=== PATIENT | female | born 1930 | race Caucasian/White ===

== ENCOUNTER 2016-07-10 12:06 | Outpatient (CLI) | payer MEDICARE, BC | END 2016-07-10 12:07 | disposition home or self-care (01) | DX: M25.552 Pain in left hip (principal); Z96.642 Presence of left artificial hip joint; M16.11 Unilateral primary osteoarthritis, right hip ==

== ENCOUNTER 2016-09-25 12:18 | Outpatient (CLI) | payer MEDICARE, BC | END 2016-09-25 12:19 | disposition home or self-care (01) | DX: N63 Unspecified lump in breast (principal) | CPT/HCPCS: 76642; G0204 ==

== ENCOUNTER 2016-09-27 13:06 | Outpatient (CLI) | payer MEDICARE, BC | END 2016-09-27 13:07 | disposition home or self-care (01) | DX: R05 Cough (principal) ==

== ENCOUNTER 2016-11-22 09:19 | Outpatient (CLI) | payer MEDICARE, BC ==
--- NOTE | 2016-11-22 12:02 | DEXA Report ---
DEXA SCAN: 11/22/2016 CLINICAL INDICATION: Postmenopausal. TECHNIQUE: Dual energy x-ray absorptiometry (DXA) was performed on a [employer] system. Regions measured are the AP spine, femoral neck, and, if needed, forearm. COMPARISON: None. In accordance with the International Society for Clinical Densitometry (ISCD) guidelines, data from previous exams may be reanalyzed using current recommendations and techniques. This is done to allow a more accurate basis for comparison with the current study. FINDINGS: The data for the lumbar spine is as follows: REGION BMD (g/cm/cm) T-SCORE Z-SCORE L1 1.150 0.2 2.4 L2 1.250 0.4 2.6 L3 1.210 0.1 2.3 L4 1.212 0.1 2.3 TOTAL 1.206 0.2 2.4 NOTE: All evaluable vertebrae are used for classification. The data for the hip is as follows: REGION BMD (g/cm/cm) T-SCORE Z-SCORE Neck 0.809 -1.6 1.0 TOTAL 0.764 -1.9 0.7 NOTE: The femoral neck or total proximal femur, whichever is lowest, is used for classification. IMPRESSION: THE WHO CLASSIFICATION BASED ON THE INTERNATIONAL REFERENCE STANDARD IS OSTEOPENIA. THE FRACTURE RISK IS INCREASED. RECOMMENDATION: Patients with diagnosis of osteoporosis or osteopenia should have regular bone mineral density assessment. For those eligible for Medicare, routine testing is allowed once every 2 years. Testing frequency can be increased for patients who have rapidly progressing disease or for those who are receiving medical therapy to restore bone mass. COMMENT: World Health Organization (WHO) definitions for osteoporosis and osteopenia: NORMAL BMD: T-score at -1.0 or higher, fracture risk is low. OSTEOPENIA BMD: T-score between -1.0 and -2.5, fracture risk is increased. OSTEOPOROSIS BMD: T-score at -2.5 or lower, fracture risk high. National Osteoporosis Foundation recommends: 1. Obtain adequate dietary calcium (at least 1200 mg per day) and vitamin D (400 -800 international units per day). 2. Participate, as appropriate, in regular weightbearing and muscle- strengthening exercise. 3. Avoid tobacco use and reduce alcohol and caffeine intake. 4. For more detailed information see the website at www.NOF.org. MTDD
== END 2016-11-22 09:20 | disposition home or self-care (01) ==
LOC: DI 09:19
PROVIDERS: ATTEND Internal Medicine
DX: Z13.820 Encounter for screening for osteoporosis (principal); M85.88 Other specified disorders of bone density and structure, other site; Z78.0 Asymptomatic menopausal state
CPT/HCPCS: 77080

== ENCOUNTER 2017-04-23 13:40 | Outpatient (CLI) | payer MEDICARE, BC ==
--- NOTE | 2017-04-23 18:45 | Ultrasound Report ---
LEFT BREAST ULTRASOUND: 04/23/2017 CLINICAL INDICATION: Followup left breast cancer on anastrozole. COMPARISON: 09/25/2016 TECHNIQUE: Real-time scanning was performed with outreach representative static images obtained. Ultrasound of the left breast demonstrates interval decrease in size of the primary cancer in the lef t upper-outer quadrant, now measuring 2.0 x 1.9 x 1.5 cm. Previously, it measured 2.9 x 2.6 x 1.5 cm . IMPRESSION: SOME RESPONSE TO ANASTROZOLE THERAPY, WITH MAXIMAL DIAMETER DECREASED FROM 2.9 TO 2.0 CM . RECOMMENDATION: CONTINUED ONCOLOGIC MANAGEMENT. BIRADS CATEGORY: 6, KNOWN MALIGNANCY. JOB #: [id number] EXT JOB #:[id number]
== END 2017-04-23 13:41 | disposition home or self-care (01) ==
LOC: DI 13:40
PROVIDERS: ATTEND Internal Medicine Hematology & Oncology
DX: C50.412 Malignant neoplasm of upper-outer quadrant of left female breast (principal); Z79.811 Long term (current) use of aromatase inhibitors
CPT/HCPCS: 76642

== ENCOUNTER 2017-09-03 09:30 | Outpatient (CLI) | payer MEDICARE, BC ==
--- NOTE | 2017-09-03 10:55 | Ultrasound Report ---
LEFT BREAST ULTRASOUND: 09/03/2017 CLINICAL INDICATION: Followup biopsy-proven left breast cancer on antiestrogen therapy. COMPARISON: 04/23/2017, 09/25/2016. TECHNIQUE: Real-time scanning was performed with accounts receivable representative static images obtained. FINDINGS: Ultrasound of the left upper outer quadrant was performed. The previously biopsied left breast cancer continues to decrease in size, now measuring 1.2 x 1.1 x 0.8 cm. Biopsy marker is again noted centrally. IMPRESSION: CONTINUED DECREASE IN SIZE OF BIOPSY-PROVEN LEFT BREAST CANCER ON ANTIESTROGEN THERAPY. RECOMMENDATIONS: Continued oncologic management. BIRADS CATEGORY 6 - KNOWN MALIGNANCY. TD: 09/03/2017 10:54 [facility]ITAL[facility]
== END 2017-09-03 09:31 | disposition home or self-care (01) ==
LOC: DI 09:30
PROVIDERS: ATTEND Internal Medicine Hematology & Oncology
DX: C50.912 Malignant neoplasm of unspecified site of left female breast (principal); Z79.899 Other long term (current) drug therapy
CPT/HCPCS: 76642

== ENCOUNTER 2017-09-17 13:03 | Outpatient (CLI) | payer MEDICARE, BC ==
--- NOTE | 2017-09-17 14:37 | XRAY Report ---
LEFT HIP AND PELVIS: 09/17/2017 CLINICAL INDICATION: Trochanteric fracture. COMPARISON: 09/02/2017. FINDINGS: Frontal view of the hips and pelvis and frogleg lateral view of the left hip demonstrate increase in displacement of the greater trochanteric fracture from 09/02/2017. Minimal callus formation is seen. Left hip replacement appears stable. Severe right hip osteoarthritis is again noted. IMPRESSION: SLIGHT INTERVAL INCREASE IN DISPLACEMENT OF LEFT GREATER TROCHANTER FRACTURE. STABLE APPEARANCE OF LEFT HIP REPLACEMENT. TD: 09/17/2017 14:36
== END 2017-09-17 13:04 | disposition home or self-care (01) ==
LOC: DI 13:03
PROVIDERS: ATTEND Orthopaedic Surgery
DX: S72.112A Displaced fracture of greater trochanter of left femur, initial encounter for closed fracture (principal); Z96.642 Presence of left artificial hip joint

== ENCOUNTER 2017-10-08 11:56 | Outpatient (CLI) | payer MEDICARE, BC ==
[2017-10-08 12:27] LABS: BASOPHILS % (AUTO) 0.7 %; EOSINOPHILS # (AUTO) 0.1 10^3/uL (0.0-0.7); EOSINOPHILS % (AUTO) 3.4 %; HGB - HEMOGLOBIN 14.2 g/dL (12.0-16.0); LYMPHOCYTES # (AUTO) 1.5 10^3/uL (1.5-3.5); LYMPHOCYTES % (AUTO) 42.5 %; MEAN CORPUSCULAR HEMOGLOBIN 33.7 pg (27.0-31.0); MEAN CORPUSCULAR HGB CONC 34.6 g/dL (32.0-36.0); MEAN CORPUSCULAR VOLUME 97.4 fL (81.0-99.0); MEAN PLATELET VOLUME 7.4 fL (7.9-10.8); MONOCYTES # (AUTO) 0.5 10^3/uL (0.0-1.0); MONOCYTES % (AUTO) 14.4 %; NEUTROPHILS # (AUTO) 1.3 10^3/uL (1.5-6.6); PLT - PLATELET COUNT 128 10^3/uL (130-450); RED BLOOD COUNT 4.22 10^6/uL (4.20-5.40); RED CELL DISTRIBUTION WIDTH 14.5 % (12.0-15.0); WHITE BLOOD COUNT 3.4 x10^3/uL (4.8-10.8)
[2017-10-08 12:34] LABS: GLUCOSE, URINE (UA) NEGATIVE (NEGATIVE); KETONES,URINE (UA) TRACE mg/dL (NEGATIVE); LEUKOCYTE ESTERASE, URINE NEGATIVE (NEGATIVE); NITRITE,URINE NEGATIVE (NEGATIVE); OCCULT BLOOD,URINE NEGATIVE (NEGATIVE); PROTEIN,URINE NEGATIVE (NEGATIVE); UROBILINOGEN,URINE 0.2 (NORMAL) E.U./dL (NORMAL)
[2017-10-08 12:39] LABS: BILIRUBIN,URINE NEGATIVE (NEGATIVE); CLARITY,URINE CLEAR (CLEAR); ICTOTEST,URINE NEGATIVE
[2017-10-08 13:03] LABS: CALCIUM 9.1 mg/dL (8.5-10.3); CREATININE 0.6 mg/dL (0.4-1.0)
[2017-10-08 13:10] LABS: HB2 TOTAL 15.6 g/dL; HEMOGLOBIN A1C 0.46 g/dL; HEMOGLOBIN A1C % 4.8 % (4.6-6.2)
== END 2017-10-08 11:57 | disposition home or self-care (01) ==
LOC: LAB 11:56
PROVIDERS: ATTEND Internal Medicine
DX: R73.9 Hyperglycemia, unspecified (principal); M16.11 Unilateral primary osteoarthritis, right hip; C50.919 Malignant neoplasm of unspecified site of unspecified female breast; Z79.899 Other long term (current) drug therapy
CPT/HCPCS: 36415; 80048; 81001; 81003; 83036; 85025; 87086

== ENCOUNTER 2017-10-08 22:11 | Outpatient (CLI) | payer MEDICARE, BC ==
--- NOTE | 2017-10-08 23:22 | Ultrasound Preliminary Report ---
Exam: US DUPLEX EXT VEINS LEFT IMPRESSION: No evidence for deep venous thrombosis. [facility] SITE ID: [id number]
--- NOTE | 2017-10-08 23:22 | Ultrasound Report ---
EXAM: LEFT LOWER EXTREMITY VENOUS ULTRASOUND EXAM DATE: 10/08/2017 11:01 PM. CLINICAL HISTORY: Left leg pain and swelling. COMPARISON: None. TECHNIQUE: Real-time sonographic vascular imaging was performed by the video control engineer through the lower extremity utilizing both color-flow and Doppler spectral analysis. Multiple service representative static syed ges were saved for review. FINDINGS: Common Femoral Vein (CFV): Normal. CFV-GSV Junction: Normal. Profunda Femoral Vein (PFV): Normal. Femoral Vein (FV) Prox: Normal. Femoral Vein (FV) Mid: Normal. Femoral Vein (FV) Dist: Normal. Popliteal Vein: Normal. Posterior Tibial Veins: Normal. Peroneal Veins: Normal. Other: Calf veins are suboptimally seen. IMPRESSION: No evidence for deep venous thrombosis. [facility] Referring Provider Line: [phone] SITE ID: [id number]
== END 2017-10-08 22:12 | disposition home or self-care (01) ==
LOC: DI 22:11
PROVIDERS: ATTEND Internal Medicine Hematology & Oncology
DX: M79.605 Pain in left leg (principal); M79.89 Other specified soft tissue disorders; C50.912 Malignant neoplasm of unspecified site of left female breast

== ENCOUNTER 2018-01-03 13:54 | Outpatient (CLI) | payer MEDICARE, BC ==
--- NOTE | 2018-01-03 15:51 | Ultrasound Report ---
Procedure Date: 01/03/2018 Accession Number: [id number] / [id number] Procedure: US - Breast Unilateral Limited CPT Code: FULL RESULT: EXAM: Left breast ultrasound. LEFT BREAST ULTRASOUND: 01/03/2018 CLINICAL INDICATION: Followup biopsy-proven left breast cancer on antiestrogen therapy. COMPARISON: 04/23/2017, 09/25/2016 and 09/03/2017. TECHNIQUE: Real-time scanning was performed with personnel representative static images obtained. FINDINGS: Ultrasound of the left upper outer quadrant was performed. The previously biopsied left breast cancer now measures 1.0 x 0.7 x 0.9 cm (previously 1.2 x 1.1 x 0.8 cm.) Acoustic dropout obscuring the already indistinct margins is again seen. Biopsy marker is again noted. IMPRESSION: The known left breast cancer is sonographically essentially unchanged. Please note that due to acoustic shadowing in this mass ultrasound evaluation for small differences in size is not reliable. BIRADS CATEGORY 6 - KNOWN MALIGNANCY.
== END 2018-01-03 13:55 | disposition home or self-care (01) ==
LOC: DI 13:54
PROVIDERS: ATTEND Internal Medicine Hematology & Oncology
DX: C50.412 Malignant neoplasm of upper-outer quadrant of left female breast (principal)
CPT/HCPCS: 76642